=== PATIENT | male | born 1985 | race Caucasian/White ===

== ENCOUNTER 2019-05-29 11:23 | Emergency (ER) | payer MEDICAID ==
[~2019-05-29] VITALS: Ht 185.4 cm; Wt 118.2 kg
[~2019-05-29 11:23] MED LIST: HYDR-4383 PO; MUPI15CR TOP
[2019-05-29] MEDS ORDERED: ketorolac trometh inj. 60 MG/2 ML VIAL IM ONE (12:30)
--- NOTE | 2019-05-29 12:40 | NUR ---
relieving RN for lunch, pt is resting quietly, resp even and unlabored, medicated per MD order
--- NOTE | 2019-05-29 12:43 | NUR ---
pt to CT
[2019-05-29] MEDS ORDERED: HYDROcodone/acetaminophen 5mg/325mg tablet PO ONE (13:40)
[2019-05-29 14:20] VITALS: BP 104/72
== END 2019-05-29 14:23 | disposition short-term general hospital (02) ==
LOC: ER 11:24
DX: S32.028A Other fracture of second lumbar vertebra, initial encounter for closed fracture (principal); S32.038A Other fracture of third lumbar vertebra, initial encounter for closed fracture; S32.048A Other fracture of fourth lumbar vertebra, initial encounter for closed fracture; S00.12XA Contusion of left eyelid and periocular area, initial encounter; S00.512A Abrasion of oral cavity, initial encounter; S00.81XA Abrasion of other part of head, initial encounter; F17.200 Nicotine dependence, unspecified, uncomplicated; F10.99 Alcohol use, unspecified with unspecified alcohol-induced disorder; Z56.0 Unemployment, unspecified; Z86.69 Personal history of other diseases of the nervous system and sense organs; Z79.899 Other long term (current) drug therapy; W18.39XA Other fall on same level, initial encounter; Y93.89 Activity, other specified; Y92.89 Other specified places as the place of occurrence of the external cause; Y99.8 Other external cause status; Y90.9 Presence of alcohol in blood, level not specified
CPT/HCPCS: 72131; 96372; 99285; J1885